=== PATIENT | female | born 1970 | race African-American/Black ===

== ENCOUNTER 2023-02-23 09:03 | Outpatient (CLI) | payer BC, SELFPAY ==
[2023-02-23 18:42] LABS: Hematocrit 36.9 % (37.0-47.0); Hemoglobin 11.5 g/dL (12.0-15.0); Mean Corpuscular HGB Conc 31.2 g/dl (32-36); Mean Corpuscular Hemoglobin 23.3 pg (26-34); Mean Corpuscular Volume 74.8 fl (80-100); Mean Platelet Volume 10.2 fl (7.4-10.4); Platelet Count Result 326 k/mm3 (150-375); Red Blood Count 4.93 M/mm3 (4.2-5.4); Red Cell Distribution Width 16.7 % (11.5-14.5); White Blood Count 5.6 K/mm3 (4.5-10.0)
[2023-02-23 18:52] LABS: Alanine Aminotransferase 27 U/L (6-35); Albumin Level 4.2 g/dL (3.5-5.1); Alkaline Phosphatase 64 U/L (38-126); Anion Gap 9 mmol/L (8-16); Aspartate Amino Transferase 54 U/L (14-36); Bilirubin,Total 0.6 mg/dL (0.2-1.3); Blood Urea Nitrogen 12 mg/dL (7-17); Calcium 9.5 mg/dL (8.4-10.2); Carbon Dioxide 27 mmol/L (22-30); Chloride 105 mmol/L (98-107); Cholesterol 160 mg/dL (0-200); Estimated Glomerular Filt Rate > 60; Glucose 85 mg/dL (65-110); HDL Direct 44 mg/dL; Potassium 3.8 mmol/L (3.4-5.0); Sodium 141 mmol/L (137-145); Triglycerides 67 mg/dL (<150)
[2023-02-23 19:04] LABS: LDL Cholesterol Direct 78 mg/dL
[2023-02-23 19:08] LABS: Hemoglobin A1C 5.2 % (<5.7)
[2023-02-23 19:25] LABS: Thyroid Stimulating Hormone 0.566 uIU/mL (0.465-4.680)
== END 2023-02-23 09:04 | disposition home or self-care (01) ==
LOC: ANHBWCLAB 09:05
PROVIDERS: PCP Nurse Practitioner Adult Health; Visit Provider Nurse Practitioner Adult Health
DX: R00.2 Palpitations (principal); E66.9 Obesity, unspecified; Z13.9 Encounter for screening, unspecified
CPT/HCPCS: 36415; 80053; 80061; 83036; 84439; 84443; 85027

== ENCOUNTER 2023-03-25 14:29 | Outpatient (CLI) | payer BC, SELFPAY ==
[2023-03-25 20:32] LABS: IFOB Positive Control Positive; Immunochemical Fecal Occult Bl Negative (N)
[2023-03-25 21:19] LABS: Iron 119 ug/dL (37-170)
[2023-03-25 21:29] LABS: Percent Iron Saturation 34 % (20-50)
== END 2023-03-25 14:30 | disposition home or self-care (01) ==
LOC: ANHBWCLAB 14:31
PROVIDERS: PCP Nurse Practitioner Adult Health; Visit Provider Nurse Practitioner Adult Health
DX: D64.9 Anemia, unspecified (principal)
CPT/HCPCS: 36415; 82274; 82728; 83540; 83550

== ENCOUNTER 2023-04-28 08:10 | Outpatient (CLI) | payer BC, SELFPAY ==
--- NOTE | ~2023-04-28 | NM_ITS ---
EXAMINATION: NM zack stress w perfusion DATE: 04/28/2023 11:42 INDICATION: Other forms of dyspnea TECHNIQUE: Rest images were obtained following intravenous administration of 9.2 mCi Tc99m tetrofosmi n (Myoview). The patient was infused intravenously with Lexiscan (Regadenoson). Then, 31.8 mCi Tc99m tetrofosmin (Myoview) was administered intravenously, and stress images were obtained. Data was recon structed into short axis and horizontal and vertical long axis SPECT images. Gated SPECT images were also obtained. COMPARISON: None. FINDINGS: There is no definite reversible or fixed perfusion abnormality to suggest ischemia or infar ction. There is normal left ventricular chamber size, wall motion and ejection fraction. Left ventr icular ejection fraction measures >70%. IMPRESSION: 1. Normal myocardial perfusion at rest and during stress. 2. Left ventricular ejection fraction measuring >70%. Reviewed, dictated and finalized at location A. POLISHER
--- NOTE | 2023-04-28 08:13 | EST_ITS ---
Patient Info Name: Melissa Bush Age: 53 years : 1970 Gender: Female Ht: 68 in Wt: 291 lbs BSA: 2.58 m2 HR: 65 bpm BP: 156 / 91 mmHg Exam Date: 04/28/2023 9:55 AM Exam Location: Echo Lab Patient Status: Outpatient Admit Date: 04/28/2023 Staff Ordering Physician: Emmanuel Zimmer DO Attending Provider: Emamnuel Zimmer DO Exercise Technologist: Tash Sherwood RDCS Exercise Physician: Emmanuel Zimmer DO Exam Type: CA stress zack w NM Study Info A regadenoson stress test was performed. Summary 1. 1. Negative lexiscan stress test for ischemic ST changes by ECG criteria. 2. 2. Baseline hypertension. 3. 3. Nuclear scan to follow and will be reported separately. Please correlate with it. 4. 4. Patient informed of the above results. Protocol: Lexiscan Stress ECG Details Stage: REST Duration (min): 1 min : 0 sec HR (bpm): 63 SBP (mmHg): 156 DBP (mmHg): 91 Stage: REST Duration (min): 6 min : 0 sec HR (bpm): 68 SBP (mmHg): 156 DBP (mmHg): 91 Stage: STAGE 1 Duration (min): 1 min : 0 sec HR (bpm): 94 SBP (mmHg): 156 DBP (mmHg): 91 Stage: RECOVERY Duration (min): 1 min : 0 sec HR (bpm): 88 SBP (mmHg): 121 DBP (mmHg): 78 Stage: RECOVERY Duration (min): 2 min : 0 sec HR (bpm): 88 SBP (mmHg): 121 DBP (mmHg): 78 Stage: RECOVERY Duration (min): 3 min : 0 sec HR (bpm): 91 SBP (mmHg): 133 DBP (mmHg): 78 Stage: RECOVERY Duration (min): 3 min : 13 sec HR (bpm): 95 SBP (mmHg): 133 DBP (mmHg): 78 Rest HR: 68 bpm Peak HR: 94 bpm Rest Sys BP: 156 mmHg Peak Sys BP: 133 mmHg Max Pred HR: 166 bpm % Max Pred HR: 57 % Target HR: 141 bpm Max RPP: 12,502 bpm*mmHg Termination Reason: Completed protocol Cardiac Symptoms: Shortness of breath Total Time: 1 min : 0 sec Rest Handley BP: 91 mmHg Peak Handley BP: 78 mmHg Total Dose: 0.4 mg Resting ECG Sinus rhythm. Stress ECG No ST changes. Arrhythmias None. Report Signatures
--- NOTE | 2023-04-28 08:15 | ECHO_ITS ---
Patient Info Name: Melissa Bush Age: 53 years : 1970 Gender: Female Ht: 68 in Wt: 296 lbs BSA: 2.61 m2 HR: 81 bpm BP: 138 / 92 mmHg Technical Quality: Fair Exam Date: 04/28/2023 8:20 AM Exam Location: Echo Lab Patient Status: Outpatient Admit Date: 04/28/2023 Staff Ordering Physician: Emmanuel Zimmer DO Attending Provider: Emmanuel Zimmer DO Referring Physician: Goran GOODMAN; Exam Type: CA echo doppler color flow Study Info Indications R06.02 - Shortness of breath Complete two-dimensional, color flow and Doppler transthoracic echocardiogram is performed. Summary 1. Complete two-dimensional, color flow and Doppler transthoracic echocardiogram is performed. 2. Left ventricular chamber dimension is normal. 3. Left ventricular systolic function is normal, estimated at 60-65%. 4. The left ventricular diastolic function is grade I diastolic dysfunction. 5. E/e' 9 is minimally elevated. 6. Left atrial chamber dimension is mildly enlarged. 7. Right atrial chamber dimension is mildly enlarged. 8. The mitral valve has mildly calcified leaflets. 9. There is mild mitral valve regurgitation. Left Ventricle E/e' 9 is minimally elevated. Left ventricular chamber dimension is normal. Left ventricular systolic function is normal, estimated at 60-65%. The left ventricular diastolic function is grade I diastolic dysfunction. Right Ventricle Right ventricular systolic function is normal and with normal TAPSE 2.7 cm. Right ventricular chamber dimension is normal. Left Atria Left atrial chamber dimension is mildly enlarged. Right Atria Right atrial chamber dimension is mildly enlarged. Aortic Valve The aortic valve is trileaflet. There is no aortic valve stenosis. There is no aortic valve regurgitation. Pulmonic Valve There is no pulmonic regurgitation. Mitral Valve The mitral valve has mildly calcified leaflets. There is no mitral valve stenosis. There is mild mitral valve regurgitation. Tricuspid Valve There is no tricuspid valve regurgitation. Pericardium/Pleural There is no pericardial effusion. Inferior Vena Cava Normal inferior vena cava with >50% collapse upon inspiration consistent with normal right atrial pressure, 5 mmHg. Aorta The aortic root size at the sinus of Valsalva is normal. Left Ventricular Outflow Tract Name Value Normal LVOT 2D LVOT Diameter 2.0 cm LVOT Doppler LVOT Peak Gradient 5 mmHg LVOT Mean Gradient 3 mmHg LVOT VTI 24 cm LVOT VTI/AV VTI Ratio 0.6 LVOT Stroke Volume 72 ml LVOT CO 5.0 l/min LVOT CI 1.9 l/min/m2 Pulmonic Valve Name Value Normal PV Doppler PV Peak Gradient 4 mmHg Mitral Valve Name
== END 2023-04-28 08:11 | disposition home or self-care (01) ==
PROVIDERS: PCP Nurse Practitioner Adult Health; Visit Provider Internal Medicine Cardiovascular Disease
DX: R06.09 Other forms of dyspnea (principal)
CPT/HCPCS: 78452; 93017; 93306; A9502; J2785

== ENCOUNTER 2023-06-25 16:07 | Outpatient (CLI) | payer BC, SELFPAY ==
--- NOTE | ~2023-06-25 | XR_ITS ---
EXAMINATION: XR chest 2V 06/25/2023 16:30 INDICATION: Chest pain PROCEDURE: 2 view chest COMPARISON: No prior studies for comparison. FINDINGS: The lungs are clear. The cardiomediastinal silhouette is within normal limits. There are no pleural effusions. There is no pneumothorax suspected. IMPRESSION: 1: NO ACUTE CARDIOPULMONARY DISEASE. Reviewed, dictated and finalized at location A.
== END 2023-06-25 16:08 | disposition home or self-care (01) ==
LOC: ANHIMG 16:10
PROVIDERS: PCP Nurse Practitioner Adult Health; Visit Provider Nurse Practitioner Adult Health
DX: R07.89 Other chest pain (principal)
CPT/HCPCS: 71046

== ENCOUNTER 2024-09-12 11:21 | Outpatient (CLI) | payer BC, SELFPAY ==
--- NOTE | ~2024-09-12 | XR_ITS ---
Lumbosacral Spine: AP and lateral views Clinical History: Pain Findings: The normal lordotic curve is maintained. The vertebral bodies and posterior elements are i ntact. There is moderate degenerative disc narrowing at L4-L5. There is moderate facet arthropathy th roughout the lumbar spine. The sacroiliac joints are normally outlined. Impression: Moderate degenerative spondylosis, as above. Reviewed, dictated and finalized at location . Impression: Moderate degenerative spondylosis, as above.
[2024-09-12 21:34] LABS: Hematocrit 37.1 % (37.0-47.0); Hemoglobin 11.5 g/dL (12.0-15.0); Mean Corpuscular Volume 74.2 fl (80-100); Mean Platelet Volume 10.7 fl (7.4-10.4); Platelet Count Result 298 k/mm3 (150-375); Red Cell Distribution Width 16.8 % (11.5-14.5); White Blood Count 6.3 K/mm3 (4.5-10.0)
[2024-09-12 22:53] LABS: Alanine Aminotransferase 25 U/L (6-35); Albumin Level 4.1 g/dL (3.5-5.1); Alkaline Phosphatase 68 U/L (38-126); Anion Gap 4 mmol/L (4-12); Aspartate Amino Transferase 64 U/L (14-36); Bilirubin,Total 0.6 mg/dL (0.2-1.3); Blood Urea Nitrogen 10 mg/dL (7-17); Calcium 10.1 mg/dL (8.4-10.2); Carbon Dioxide 29 mmol/L (22-30); Chloride 105 mmol/L (98-107); Cholesterol 170 mg/dL (0-200); Estimated Glomerular Filt Rate > 60; Glucose 87 mg/dL (65-110); HDL Direct 39 mg/dL; Sodium 138 mmol/L (137-145); Total Protein 7.7 g/dL (6.3-8.2); Triglycerides 111 mg/dL (<150)
[2024-09-12 23:14] LABS: LDL Cholesterol Direct 92 mg/dL
[2024-09-12 23:34] LABS: Hemoglobin A1C 5.4 % (<5.7)
== END 2024-09-12 11:22 | disposition home or self-care (01) ==
LOC: ANHBWCLAB 11:25
PROVIDERS: PCP Nurse Practitioner Adult Health; Visit Provider Nurse Practitioner Adult Health
DX: M47.896 Other spondylosis, lumbar region (principal); E66.9 Obesity, unspecified; Z00.00 Encounter for general adult medical examination without abnormal findings; I10 Essential (primary) hypertension
CPT/HCPCS: 36415; 72100; 80053; 80061; 83036; 84443; 85027